=== PATIENT | female | born 1940 | race African-American/Black ===

== ENCOUNTER 2019-02-05 14:18 | Inpatient (IN) | payer OTHER ==
--- NOTE | 2019-02-05 14:57 | PDOC ---
History of Present Illness - General Chief Complaint: Blood Sugar Problem Stated Complaint: DM Time Seen by Provider: 02/05/19 14:57 - History of Present Illness Initial Comments: 02/05/19 15:41 Ms. 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 EMS was called and patient was noted to have BGM of 40. Patient was given D10 and improved rapidly to AOx3 status upon arrival to ER. Patient has no complaints at this time. The patient denies chest pain, shortness of breath, headache and dizziness. Denies fever, chills, nausea, vomit, diarrhea and constipation. Denies dysuria, frequency, urgency and hematuria. Past History - Past Medical History Allergies/Adverse Reactions: Allergies Allergy/AdvReac Type Severity Reaction Status Date / Time ciprofloxacin [From Cipro] Allergy Verified 02/05/19 14:30 Penicillins Allergy Verified 02/05/19 14:30 sulfamethoxazole Allergy Verified 02/05/19 14:30 [From Bactrim] trimethoprim [From Bactrim] Allergy Verified 02/05/19 14:30 Home Medications: Ambulatory Orders Amlodipine Besylate 10 mg PO DAILY 02/05/19 Ascorbate Calcium [Vitamin C] 500 mg PO DAILY 02/05/19 Cyanocobalamin (Vitamin B-12) [Vitamin B-12] 1,500 mcg PO DAILY 02/05/19 Insulin Glargine,Hum.rec.anlog [Lantus] 45 unit SQ AM 02/05/19 Insulin Lispro [Humalog] 3 unit SQ TID 02/05/19 Latanoprost 1 drop OP HS 02/05/19 Magnesium 400 mg PO TID 02/05/19 Metoprolol Tartrate 100 mg PO BID 02/05/19 Ranitidine HCl 150 mg PO BID 02/05/19 hydrALAZINE HCL [Apresoline -] 25 mg PO TID 02/05/19 COPD: No HTN: Yes Hypercholesterolemia: Yes - Suicide/Smoking/Psychosocial Hx Smoking History: Never smoked Hx Alcohol Use: No Drug/Substance Use Hx: No Review of Systems - Review of Systems Comments:: 02/05/19 15:50 GENERAL/CONSTITUTIONAL: No fever or chills. No weakness. HEAD, EYES, EARS, NOSE AND THROAT: No change in vision. No ear pain or discharge. No sore throat. CARDIOVASCULAR: No chest pain or shortness of breath RESPIRATORY: No cough, wheezing, or hemoptysis. GASTROINTESTINAL: No nausea, vomiting, diarrhea or constipation. GENITOURINARY: No dysuria, frequency, or change in urination. MUSCULOSKELETAL: No joint or muscle swelling or pain. No neck or back pain. SKIN: No rash NEUROLOGIC: +LOC as described. No headache, vertigo, or change in strength/ sensation. ENDOCRINE: No increased thirst. No abnormal weight change HEMATOLOGIC/LYMPHATIC: No anemia, easy bleeding, or history of blood clots. ALLERGIC/IMMUNOLOGIC: No hives or skin allergy. *Physical Exam - Vital Signs Last Vital Signs Temp Pulse Resp BP Pulse Ox 97.5 F L 71 16 123/63 96 02/05/19 14:20 02/05/19 14:20 02/05/19 14:20 02/05/19 14:20 02/05/19 14:20 - Physical Exam Comments: 02/05/19 15:51 GENERAL: Awake, alert, and fully oriented, in no acute distress HEAD: No signs of trauma, normocephalic, atraumatic EYES: PERRLA, EOMI, sclera anicteric, conjunctiva clear ENT: Auricles normal inspection, hearing grossly normal, nares patent, oropharynx clear without exudates. Moist mucosa NECK: Normal ROM, supple, no lymphadenopathy, JVD, or masses LUNGS: No distress, speaks full sentences, clear to auscultation bilaterally HEART: Regular rate and rhythm, normal S1 and S2, no murmurs, rubs or gallops, peripheral pulses normal and equal bilaterally. ABDOMEN: Soft, nontender, normoactive bowel sounds. No guarding, no rebound. No masses EXTREMITIES: Normal inspection, Normal range of motion, no edema. No clubbing or cyanosis. NEUROLOGICAL: Cranial nerves II through XII grossly intact. Normal speech, normal gait, no focal sensorimotor deficits SKIN: Warm, Dry, normal turgor, no rashes or lesions noted. ED Treatment Course - LABORATORY CBC & Chemistry Diagram: 02/05/19 15:36 02/05/19 15:36 Medical Decision Making - Medical Decision Making 02/05/19 16:35 Ms. Bran is a 78 yo female w/ pmh as described who presents for evaluation of non-responsiveness in the setting of hypoglycemia. Patient worked up with labs as below upon arrival. Patient given d50 push for hypoglycemia. Patient will likely be observed for repeat BGM in ER. 02/05/19 18:59 Patient repeat BGM improved as below. Patient noted to have UTI. Given repeat hypoglycemic episodes and UTI requiring ABX patient will be admitted for observation for further care. Patient given rocephin for UTI treatment; discussed allergy to pencillins with patient which was reported to be rash. Decision made to continue with rocephin given relatively mild reaction. Will monitor for allergic reaction. Laboratory Results - last 24 hr 02/05/19 02/05/19 02/05/19 15:36 15:36 16:24 WBC 8.5 RBC 4.72 Hgb 10.3 L Hct 31.4 L MCV 66.5 L MCH 21.8 L MCHC 32.8 RDW 18.6 H Plt Count 154 MPV 8.9 Absolute Neuts (auto) 7.1 Neutrophils % 83.8 H Lymphocytes % 10.4 Monocytes % 5.2 Eosinophils % 0.3 Basophils % 0.3 Nucleated RBC % 0 Sodium 142 Potassium 3.6 Chloride 106 Carbon Dioxide 27 Anion Gap 9 BUN 20 H Creatinine 1.3 Creat Clearance w eGFR 39.72 POC Glucometer 36 Random Glucose 39 L* Calcium 8.3 L Total Bilirubin 0.2 AST 20 ALT 15 Alkaline Phosphatase 84 Creatine Kinase 120 Troponin I < 0.02 Total Protein 7.4 Albumin 3.6 *DC/Admit/Observation/Transfer Diagnosis at time of Disposition: Hypoglycemia UTI (urinary tract infection) Qualifiers: Urinary tract infection type: site unspecified Hematuria presence: without hematuria Qualified Code(s): N39.0 - Urinary tract infection, site not specified - Discharge Dispostion Decision to Admit order: Yes - Referrals Referrals: Reuben Philip MD [Primary Care Provider] - - Patient Instructions - Post Discharge Activity
[2019-02-05 16:23] LABS: BASO % 0.3 % (0-2.0); EOS % 0.3 % (0-4.5); HEMATOCRIT 31.4 % (32.4-45.2); HEMOGLOBIN 10.3 GM/dL (10.7-15.3); LYMPH % 10.4 % (8-40); MCH 21.8 pg (25.7-33.7); MCHC 32.8 g/dl (32.0-36.0); MEAN CELL VOLUME 66.5 fl (80-96); MEAN PLT VOLUME 8.9 fl (7.5-11.1); MONO % 5.2 % (3.8-10.2); NEUT % 83.8 % (42.8-82.8); PLATELET COUNT 154 K/MM3 (134-434); RBC 4.72 M/mm3 (3.60-5.2); RDW 18.6 % (11.6-15.6); WHITE BLOOD COUNT 8.5 K/mm3 (4.0-10.0)
[2019-02-05] MEDS ORDERED: DEXTROSE 50%-WATER - 25 GM/50 ML VIAL IVPUSH ONE (16:25)
[2019-02-05] MEDS ORDERED: DEXTROSE 50%-WATER 25 GM/50 ML DISP.SYRIN ONE (16:26)
[2019-02-05 16:29] LABS: ALBUMIN 3.6 g/dl (3.4-5.0); ALK PHOS 84 U/L (45-117); ANION GAP 9 MMOL/L (8-16); BILIRUBIN,TOTAL 0.2 mg/dL (0.2-1); BLOOD UREA NITROGEN 20 mg/dL (7-18); CALCIUM 8.3 mg/dL (8.5-10.1); CHLORIDE 106 mmol/L (98-107); CO2 27 mmol/L (21-32); CREATININE 1.3 mg/dL (0.55-1.3); POTASSIUM 3.6 mmol/L (3.5-5.1); SGOT/AST 20 U/L (15-37); SGPT/ALT 15 U/L (13-61); SODIUM 142 mmol/L (136-145); TOT PROT 7.4 g/dl (6.4-8.2)
[2019-02-05 16:31] LABS: GLUCOSE,RANDOM 39 mg/dL (74-106)
--- NOTE | 2019-02-05 16:36 | PDOC ---
Documentation entered by Víctor Henley SCRIBE, acting as scribe for Bebe Ya MD. Bebe Ya MD: This documentation has been prepared by the wooibeKale Daniel, SCRIBE, under my direction and personally reviewed by me in its entirety. I confirm that the documentation accurately reflects all work, treatment, procedures, and medical decision making performed by me. Attending Attestation - Resident Resident Name: SebaselishabamDeclanBenjamin - ED Attending Attestation I have performed the following: I have examined & evaluated the patient, The case was reviewed & discussed with the resident, I agree w/resident's findings & plan, Exceptions are as noted - HPI HPI: 02/05/19 15:34 The patient is a 78 year old female with a past medical history of diabetes, seizures, and cancer with an adrenal mass brought in today by EMS from the [facility] for evaluation of low blood sugar. Patient was found passed out at the [facility] and EMS was called. Patients blood sugar was found to be 40 and she was given oral glucose. Patient denies headache, lightheadedness. Denies fever, chills. Denies chest pain, shortness of breath. Denies nausea, vomiting, diarrhea, abdominal pain. Allergies: ciprofloxacin, penicillins, sulfamethoxazole, trimethoprim PCP: Reuben Philip - Physicial Exam PE: GENERAL: Awake, alert, and fully oriented, in no acute distress HEAD: No signs of trauma EYES: PERRLA, EOMI, sclera anicteric, conjunctiva clear ENT: Auricles normal inspection, hearing grossly normal, nares patent, oropharynx clear without exudates. Moist mucosa NECK: Normal ROM, supple, no lymphadenopathy, JVD, or masses LUNGS: Breath sounds equal, clear to auscultation bilaterally. No wheezes, and no crackles HEART: Regular rate and rhythm, normal S1 and S2, no murmurs, rubs or gallops ABDOMEN: Soft, nontender, normoactive bowel sounds. No guarding, no rebound. No masses EXTREMITIES: Normal range of motion, no edema. No clubbing or cyanosis. No cords, erythema, or tenderness NEUROLOGICAL: Cranial nerves II through XII grossly intact. Normal speech, normal gait. Motor and sensation intact SKIN: Warm, Dry, normal turgor, no rashes or lesions noted. - Medical Decision Making Pt presents with multiple episodes of hypoglycemia- one at home, and now one in the ED. Etiology is unclear- she is not on any sulfonylureas, her insulin is administered at the center where she lives, did not skip meals, and she has not recently been ill. Will give a meal in ED, will cont to monitor to see if she continues to drop. If so, will place on obs.
[2019-02-05 17:39] LABS: EPI CELLS 0.2 /HPF (0-5/HPF); URINE APPEARANCE CLOUDY; URINE BACTERIA >9000 /hpf (NEGATIVE); URINE BILIRUBIN NEGATIVE (NEGATIVE); URINE CASTS 6 /lpf (0-8); URINE COLOR YELLOW; URINE GLUCOSE (UA) NEGATIVE (NEGATIVE); URINE KETONE NEGATIVE (NEGATIVE); URINE LEUK ESTERASE 2+ (NEGATIVE); URINE NITRITE NEGATIVE (NEGATIVE); URINE PROTEIN 1+ (NEGATIVE); URINE RBC 3 /hpf (0-4); URINE UROBILINOGEN 0.2 mg/dL (0.2-1.0); URINE WBC 130 /hpf (0-5)
[2019-02-05] MEDS ORDERED: CEFTRIAXONE 1,000 MG in DEXTROSE 5%-WATER - 50 ML IVPB ONE (18:59)
[2019-02-05] MEDS ORDERED: CEFTRIAXONE 1 GM/50 ML BAG ONE (19:04)
--- NOTE | 2019-02-05 20:26 | HP ---
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 who presents for evaluation of non-responsive episode earlier today. EMS was called and patient was noted to have BGM of 40. Patient was given D10 and improved rapidly to AOx3 status upon arrival to ER. Patient has no complaints at this time. - Past Medical History Cardiovascular: Yes: HTN, Hyperlipdemia Heme/Onc: Yes: Other (vaginal ca) Endocrine: Yes: Diabetes Mellitus - Smoking History Smoking history: Never smoked - Alcohol/Substance Use Hx Alcohol Use: No Home Medications - Allergies Allergies/Adverse Reactions: Allergies Allergy/AdvReac Type Severity Reaction Status Date / Time ciprofloxacin [From Cipro] Allergy Verified 02/05/19 14:30 Penicillins Allergy Verified 02/05/19 14:30 sulfamethoxazole Allergy Verified 02/05/19 14:30 [From Bactrim] trimethoprim [From Bactrim] Allergy Verified 02/05/19 14:30 [place] AdvReac Uncoded 02/06/19 12:46 - Home Medications Home Medications: Ambulatory Orders Amlodipine Besylate 10 mg PO DAILY 02/05/19 Ascorbate Calcium [Vitamin C] 500 mg PO DAILY 02/05/19 Cyanocobalamin (Vitamin B-12) [Vitamin B-12] 1,500 mcg PO DAILY 02/05/19 Insulin Glargine,Hum.rec.anlog [Lantus] 45 unit SQ AM 02/05/19 Insulin Lispro [Humalog] 3 unit SQ TID 02/05/19 Latanoprost 1 drop OP HS 02/05/19 Magnesium 400 mg PO TID 02/05/19 Metoprolol Tartrate 100 mg PO BID 02/05/19 Ranitidine HCl 150 mg PO BID 02/05/19 hydrALAZINE HCL [Apresoline -] 25 mg PO TID 02/05/19 Physical Examination Vital Signs: Vital Signs Temperature 97.5 F L 02/05/19 18:37 Pulse Rate 73 02/05/19 18:37 Respiratory Rate 17 02/05/19 18:37 Blood Pressure 154/75 02/05/19 18:37 O2 Sat by Pulse Oximetry (%) 100 02/05/19 18:37 Constitutional: Yes: No Distress HENT: Yes: Atraumatic Neck: Yes: Supple Cardiovascular: Yes: Regular Rate and Rhythm Respiratory: Yes: CTA Bilaterally Gastrointestinal: Yes: Normal Bowel Sounds Extremities: Yes: WNL Edema: No Peripheral Pulses WNL: Yes Neurological: Yes: Alert, Oriented Labs: CBC, BMP 02/05/19 15:36 02/05/19 15:36 Imaging - Results X-ray: Report Reviewed Problem List - Problems (1) Hypoglycemia Assessment/Plan: monitor Code(s): E16.2 - HYPOGLYCEMIA, UNSPECIFIED (2) UTI (urinary tract infection) Assessment/Plan: iv abx cxs sent Code(s): N39.0 - URINARY TRACT INFECTION, SITE NOT SPECIFIED Qualifiers: Urinary tract infection type: site unspecified Hematuria presence: without hematuria Qualified Code(s): N39.0 - Urinary tract infection, site not specified Assessment/Plan Laboratory Tests 02/05/19 02/05/19 02/05/19 15:36 15:36 16:24 WBC 8.5 RBC 4.72 Hgb 10.3 L Hct 31.4 L MCV 66.5 L MCH 21.8 L MCHC 32.8 RDW 18.6 H Plt Count 154 MPV 8.9 Absolute Neuts (auto) 7.1 Neutrophils % 83.8 H Lymphocytes % 10.4 Monocytes % 5.2 Eosinophils % 0.3 Basophils % 0.3 Nucleated RBC % 0 Sodium 142 Potassium 3.6 Chloride 106 Carbon Dioxide 27 Anion Gap 9 BUN 20 H Creatinine 1.3 Creat Clearance w eGFR 39.72 POC Glucometer 36 Random Glucose 39 L* Calcium 8.3 L Total Bilirubin 0.2 AST 20 ALT 15 Alkaline Phosphatase 84 Creatine Kinase 120 Troponin I < 0.02 Total Protein 7.4 Albumin 3.6 Urine Color Urine Appearance Urine pH Ur Specific Dumas Urine Protein Urine Glucose (UA) Urine Ketones Urine Blood Urine Nitrite Urine Bilirubin Urine Urobilinogen Ur Leukocyte Esterase Urine WBC (Auto) Urine RBC (Auto) Urine Casts (Auto) U Epithel Cells (Auto) Urine Bacteria (Auto) 02/05/19 02/05/19 17:15 18:21 WBC RBC Hgb Hct MCV MCH MCHC RDW Plt Count MPV Absolute Neuts (auto) Neutrophils % Lymphocytes % Monocytes % Eosinophils % Basophils % Nucleated RBC % Sodium Potassium Chloride Carbon Dioxide Anion Gap BUN Creatinine Creat Clearance w eGFR POC Glucometer 195 Random Glucose Calcium Total Bilirubin AST ALT Alkaline Phosphatase Creatine Kinase Troponin I Total Protein Albumin Urine Color Yellow Urine Appearance Cloudy Urine pH 5.0 Ur Specific Dum[place] 1.016 Urine Protein 1+ H Urine Glucose (UA) Negative Urine Ketones Negative Urine Blood Negative Urine Nitrite Negative Urine Bilirubin Negative Urine Urobilinogen 0.2 Ur Leukocyte Esterase 2+ H Urine WBC (Auto) 130 Urine RBC (Auto) 3 Urine Casts (Auto) 6 U Epithel Cells (Auto) 0.2 Urine Bacteria (Auto) >9000 Active Medications Generic Name Dose Route Start Last Admin Trade Name Freq PRN Reason Stop Dose Admin Amlodipine Besylate 10 mg 02/06/19 10:00 02/07/19 11:18 Norvasc - PO 10 mg DAILY CONNIE Administration Hydralazine HCl 25 mg 02/05/19 22:00 02/07/19 13:09 Apresoline - PO 25 mg TID CONNIE Administration Aztreonam 1 gm/ Dextrose 50 mls @ 100 mls/hr 02/07/19 11:30 02/07/19 17:26 IVPB 100 mls/hr Q8H-IV CONNIE Administration Protocol Insulin Aspart 1 vial 02/06/19 22:00 02/06/19 21:11 Novolog Vial Sliding Scale - SQ Not Given HS [facility] Protocol Insulin Aspart 1 vial 02/07/19 07:00 02/07/19 17:36 Novolog Vial Sliding Scale - SQ 2 units TIDAC CONNIE Administration Protocol Metoprolol Tartrate 100 mg 02/05/19 22:00 02/07/19 11:18 Lopressor - PO 100 mg BID CONNIE Administration
[2019-02-05] MEDS ORDERED: INSULIN (NOVOLOG) ASPART 100 UNITS/ML 10ML VIAL ONE (21:02)
[2019-02-05] MEDS: hydrALAZINE HCL 25 MG TABLET (FP) PO SCH (21:12)
[2019-02-05] MEDS: INSULIN SLIDING SCALE (NOVOLOG) 1 VIAL SQ SCH (21:12)
[2019-02-05] MEDS: METOPROLOL TARTRATE 50 MG TABLET (FP) PO SCH (21:12)
[2019-02-06] MEDS: hydrALAZINE HCL 25 MG TABLET (FP) PO SCH ×3 (05:30→21:10)
[2019-02-06] MEDS: INSULIN SLIDING SCALE (NOVOLOG) 1 VIAL SQ SCH ×4 (06:44→21:11)
[2019-02-06 07:34] LABS: BASO % 0.5 % (0-2.0); EOS % 1.6 % (0-4.5); HEMOGLOBIN 9.7 GM/dL (10.7-15.3); LYMPH % 13.5 % (8-40); MCH 22.2 pg (25.7-33.7); MCHC 34.5 g/dl (32.0-36.0); MEAN CELL VOLUME 64.3 fl (80-96); MEAN PLT VOLUME 8.5 fl (7.5-11.1); MONO % 5.7 % (3.8-10.2); NEUT % 78.7 % (42.8-82.8); PLATELET COUNT 165 K/MM3 (134-434); RBC 4.35 M/mm3 (3.60-5.2); RDW 19.2 % (11.6-15.6); WHITE BLOOD COUNT 8.3 K/mm3 (4.0-10.0)
[2019-02-06 07:55] LABS: ALBUMIN 3.4 g/dl (3.4-5.0); ALK PHOS 80 U/L (45-117); ANION GAP 9 MMOL/L (8-16); BILIRUBIN,TOTAL 0.5 mg/dL (0.2-1); BLOOD UREA NITROGEN 19 mg/dL (7-18); CALCIUM 8.4 mg/dL (8.5-10.1); CHLORIDE 105 mmol/L (98-107); CO2 25 mmol/L (21-32); CREATININE 1.3 mg/dL (0.55-1.3); GLUCOSE,RANDOM 142 mg/dL (74-106); POTASSIUM 4.1 mmol/L (3.5-5.1); SGOT/AST 15 U/L (15-37); SGPT/ALT 13 U/L (13-61); SODIUM 139 mmol/L (136-145)
--- NOTE | 2019-02-06 09:14 | CONSULT ---
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 Pt says she had her usual breakfast at around 9 AM , went to see her MD at around 11 AM and returned to her room. Around 1 PM which is her usual lunch time she woke up in her room with the nurses around her. Doesn't remember when she lost consciousness or for how long. EMS was called and patient was noted to have BGM of 40. Patient was given D10 and improved rapidly to AOx3 status upon arrival to ER. Patient has no complaints at this time. Pt gives h/o of LOC from hypoglycemia in 1995. - History Source History Provided By: Patient, Medical Record - Past Medical History Cardio/Vascular: Yes: HTN, Hyperlipdemia ...: No Endocrine: Yes: Diabetes Mellitus - Alcohol/Substance Use Hx Alcohol Use: No - Smoking History Smoking history: Never smoked Have you smoked in the past 12 months: No Home Medications - Allergies Allergies/Adverse Reactions: Allergies Allergy/AdvReac Type Severity Reaction Status Date / Time ciprofloxacin [From Cipro] Allergy Verified 02/05/19 14:30 Penicillins Allergy Verified 02/05/19 14:30 sulfamethoxazole Allergy Verified 02/05/19 14:30 [From Bactrim] trimethoprim [From Bactrim] Allergy Verified 02/05/19 14:30 [place]ia AdvReac Uncoded 02/06/19 12:46 - Home Medications Home Medications: Ambulatory Orders Amlodipine Besylate 10 mg PO DAILY 02/05/19 Ascorbate Calcium [Vitamin C] 500 mg PO DAILY 02/05/19 Cyanocobalamin (Vitamin B-12) [Vitamin B-12] 1,500 mcg PO DAILY 02/05/19 Insulin Glargine,Hum.rec.anlog [Lantus] 45 unit SQ AM 02/05/19 Insulin Lispro [Humalog] 3 unit SQ TID 02/05/19 Latanoprost 1 drop OP HS 02/05/19 Magnesium 400 mg PO TID 02/05/19 Metoprolol Tartrate 100 mg PO BID 02/05/19 Ranitidine HCl 150 mg PO BID 02/05/19 hydrALAZINE HCL [Apresoline -] 25 mg PO TID 02/05/19 Family Disease History - Family Disease History Family Disease History: Diabetes: Mother Review of Systems - Review of Systems Constitutional: reports: No Symptoms Eyes: reports: No Symptoms HENT: reports: No Symptoms Neck: reports: No Symptoms Cardiovascular: reports: No Symptoms Respiratory: reports: No Symptoms Gastrointestinal: reports: No Symptoms Genitourinary: reports: No Symptoms Musculoskeletal: reports: No Symptoms Integumentary: reports: No Symptoms Neurological: reports: No Symptoms Endocrine: reports: No Symptoms Physical Exam Vital Signs: Vital Signs Temperature 98.2 F 02/06/19 06:24 Pulse Rate 70 02/06/19 06:24 Respiratory Rate 17 02/06/19 06:24 Blood Pressure 136/53 L 02/06/19 06:24 O2 Sat by Pulse Oximetry (%) 100 02/05/19 23:08 Constitutional: Yes: No Distress, Calm Eyes: Yes: Conjunctiva Clear, EOM Intact HENT: Yes: Atraumatic, Normocephalic Neck: Yes: Supple, Trachea Midline Cardiovascular: Yes: Regular Rate and Rhythm Respiratory: Yes: Regular, CTA Bilaterally Gastrointestinal: Yes: Normal Bowel Sounds, Soft Musculoskeletal: Yes: WNL Extremities: Yes: WNL Edema: No Labs: CBC, BMP 02/06/19 07:15 02/06/19 07:15 Assessment/Plan AP; Hypoglycemia T2DM HTN Diet exercise discussed Diabetes education done Monitor BGM Novolog SS coverage Hold long acting Insulin for now Will try to get BGM log from [facility] Nutrition consult
[2019-02-06] MEDS: METOPROLOL TARTRATE 50 MG TABLET (FP) PO SCH ×2 (10:35→21:10)
[2019-02-06] MEDS: amLODIPine BESYLATE 10 MG TABLET (FP) PO SCH (10:35)
--- NOTE | 2019-02-06 11:22 | CON.ID ---
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 EMS was called and patient was noted to have BGM of 40. Patient was given D10 and improved rapidly to AOx3 status upon arrival to ER. Patient has no complaints at this time. also thee i worry if the patient das had uti - History Source History Provided By: Patient Limitations to Obtaining History: No Limitations - Past Medical History Cardio/Vascular: Yes: HTN, Hyperlipdemia ...: No Endocrine: Yes: Diabetes Mellitus - Alcohol/Substance Use Hx Alcohol Use: No - Smoking History Smoking history: Never smoked Have you smoked in the past 12 months: No Home Medications - Allergies Allergies/Adverse Reactions: Allergies Allergy/AdvReac Type Severity Reaction Status Date / Time ciprofloxacin [From Cipro] Allergy Verified 02/05/19 14:30 Penicillins Allergy Verified 02/05/19 14:30 sulfamethoxazole Allergy Verified 02/05/19 14:30 [From Bactrim] trimethoprim [From Bactrim] Allergy Verified 02/05/19 14:30 [place] AdvReac Uncoded 02/06/19 12:46 - Home Medications Home Medications: Ambulatory Orders Ascorbate Calcium [Vitamin C] 500 mg PO DAILY 02/05/19 Cyanocobalamin (Vitamin B-12) [Vitamin B-12] 1,500 mcg PO DAILY 02/05/19 Insulin Glargine,Hum.rec.anlog [Lantus] 45 unit SQ AM 02/05/19 Insulin Lispro [Humalog] 3 unit SQ TID 02/05/19 RX: Amlodipine Besylate 10 mg PO DAILY 02/05/19 RX: Latanoprost 1 drop OP HS 02/05/19 RX: Magnesium 400 mg PO TID 02/05/19 RX: Metoprolol Tartrate 100 mg PO BID 02/05/19 RX: Ranitidine HCl 150 mg PO BID 02/05/19 hydrALAZINE HCL [Apresoline -] 25 mg PO TID 02/05/19 Family Disease History - Family Disease History Family Disease History: Diabetes: Father, Mother Review of Systems - Review of Systems Constitutional: reports: Other Eyes: reports: No Symptoms HENT: reports: No Symptoms Neck: reports: No Symptoms Cardiovascular: reports: No Symptoms Respiratory: reports: No Symptoms Gastrointestinal: reports: No Symptoms Genitourinary: reports: No Symptoms Musculoskeletal: reports: No Symptoms Integumentary: reports: No Symptoms Neurological: reports: Change in LOC Endocrine: reports: No Symptoms Hematology/Lymphatic: reports: No Symptoms Psychiatric: reports: Hallucinations Physical Exam Vital Signs: Vital Signs Temperature 98.2 F 02/06/19 06:24 Pulse Rate 70 02/06/19 06:24 Respiratory Rate 17 02/06/19 06:24 Blood Pressure 136/53 L 02/06/19 06:24 O2 Sat by Pulse Oximetry (%) 100 02/05/19 23:08 Constitutional: Yes: No Distress, Calm, Thin Eyes: Yes: Conjunctiva Clear Cardiovascular: Yes: Regular Rate and Rhythm Respiratory: Yes: Regular, CTA Bilaterally Gastrointestinal: Yes: Normal Bowel Sounds, Soft Musculoskeletal: Yes: WNL Extremities: Yes: WNL Neurological: Yes: Alert, Oriented Psychiatric: Yes: Alert, Oriented Labs: CBC, BMP 02/06/19 07:15 02/06/19 07:15 Imaging - Results Chest X-ray: Report Reviewed, Image Reviewed Assessment/Plan Problem List - Problems (1) Hypoglycemia Code(s): E16.2 - HYPOGLYCEMIA, UNSPECIFIED (2) UTI (urinary tract infection) Code(s): N39.0 - URINARY TRACT INFECTION, SITE NOT SPECIFIED Qualifiers: Urinary tract infection type: site unspecified Hematuria presence: without hematuria Qualified Code(s): N39.0 - Urinary tract infection, site not specified ams weakness plan will hold off on starting any abx will await for the urine result and then decide further rest as per the team
--- NOTE | 2019-02-06 11:39 | EKG ---
Test Reason : Blood Pressure : / mmHG Vent. Rate : 062 BPM Atrial Rate : 062 BPM P-R Int : 130 ms QRS Dur : 070 ms QT Int : 450 ms P-R-T Axes : 029 -11 016 degrees QTc Int : 456 ms POOR DATA QUALITY, INTERPRETATION MAY BE ADVERSELY AFFECTED NORMAL SINUS RHYTHM POSSIBLE LEFT ATRIAL ENLARGEMENT LEFT VENTRICULAR HYPERTROPHY ABNORMAL ECG NO PREVIOUS ECGS AVAILABLE Confirmed by Taurus Worley MD ([id number]) on 02/06/2019 11:38:59 AM Referred By: Confirmed By:Taurus Worley MD
--- NOTE | 2019-02-06 16:54 | PN ---
Progress Note, Physician - Current Medication List Current Medications: Active Medications Amlodipine Besylate (Norvasc -) 10 mg PO DAILY ON LICENSE OF [facility] Last Admin: 02/06/19 10:35 Dose: 10 mg Hydralazine HCl (Apresoline -) 25 mg PO TID ON LICENSE OF [facility] Last Admin: 02/06/19 14:55 Dose: 25 mg Insulin Aspart (Novolog Vial Sliding Scale -) 1 vial SQ ACHS ON LICENSE OF [facility]; Protocol Last Admin: 02/06/19 12:48 Dose: 4 units Metoprolol Tartrate (Lopressor -) 100 mg PO BID ON LICENSE OF [facility] Last Admin: 02/06/19 10:35 Dose: 100 mg - Objective Vital Signs: Vital Signs Temperature 98.3 F 02/06/19 14:42 Pulse Rate 68 02/06/19 14:42 Respiratory Rate 18 02/06/19 14:42 Blood Pressure 153/63 02/06/19 14:42 O2 Sat by Pulse Oximetry (%) 100 02/05/19 23:08 Constitutional: Yes: No Distress HENT: Yes: Atraumatic Neck: Yes: Supple Cardiovascular: Yes: Regular Rate and Rhythm Respiratory: Yes: CTA Bilaterally Gastrointestinal: Yes: Normal Bowel Sounds Extremities: Yes: WNL Neurological: Yes: Alert, Oriented Labs: CBC, BMP 02/06/19 07:15 02/06/19 07:15 Problem List - Problems (1) Hypoglycemia Assessment/Plan: monitor Code(s): E16.2 - HYPOGLYCEMIA, UNSPECIFIED (2) UTI (urinary tract infection) Assessment/Plan: iv abx cxs sent Code(s): N39.0 - URINARY TRACT INFECTION, SITE NOT SPECIFIED Qualifiers: Urinary tract infection type: site unspecified Hematuria presence: without hematuria Qualified Code(s): N39.0 - Urinary tract infection, site not specified
[2019-02-07] MEDS: hydrALAZINE HCL 25 MG TABLET (FP) PO SCH ×3 (05:39→21:12)
[2019-02-07] MEDS: INSULIN SLIDING SCALE (NOVOLOG) 1 VIAL SQ SCH ×5 (06:14→21:12)
[2019-02-07] MEDS ORDERED: INSULIN SLIDING SCALE (NOVOLOG) 1 VIAL SQ SCH (07:00)
--- NOTE | 2019-02-07 08:55 | PN ---
Progress Note (short form) - Note Progress Note: Denies any complaints FS stable of long actin insulin Vital Signs Period Temp Pulse Resp BP Sys/Lopez Pulse Ox Last 24 Hr 98.3 F-99.2 F 56-75 17-18 126-156/57-84 97-100 PE: Awake , alert Neck: Supple, No JVD HEENT: PERRL Lungs: CTA CVS: S1S2 Abd: Benign EXt: No edema Neuro: No focal deficit CMP Sodium 139 mmol/L (136-145) 02/06/19 07:15 Potassium 4.1 mmol/L (3.5-5.1) 02/06/19 07:15 Chloride 105 mmol/L (98-107) 02/06/19 07:15 Carbon Dioxide 25 mmol/L (21-32) 02/06/19 07:15 Anion Gap 9 MMOL/L (8-16) 02/06/19 07:15 BUN 19 mg/dL (7-18) H 02/06/19 07:15 Creatinine 1.3 mg/dL (0.55-1.3) 02/06/19 07:15 Creat Clearance w eGFR 39.72 (>60) 02/06/19 07:15 POC Glucometer 125 UNITS (80-120) 02/07/19 05:53 Random Glucose 142 mg/dL (74-106) H 02/06/19 07:15 Calcium 8.4 mg/dL (8.5-10.1) L 02/06/19 07:15 Total Bilirubin 0.5 mg/dL (0.2-1) 02/06/19 07:15 AST 15 U/L (15-37) 02/06/19 07:15 ALT 13 U/L (13-61) 02/06/19 07:15 Alkaline Phosphatase 80 U/L (45-117) 02/06/19 07:15 Creatine Kinase 114 U/L (26-192) 02/05/19 21:30 Troponin I < 0.02 ng/ml (0.00-0.05) 02/05/19 21:30 Total Protein 7.0 g/dl (6.4-8.2) 02/06/19 07:15 Albumin 3.4 g/dl (3.4-5.0) 02/06/19 07:15 Current Medications Generic Name Dose Route Start Last Admin Trade Name Freq PRN Reason Stop Dose Admin Amlodipine Besylate 10 mg 02/06/19 10:00 02/06/19 10:35 Norvasc - PO 10 mg DAILY [facility] Administration Hydralazine HCl 25 mg 02/05/19 22:00 02/07/19 05:39 Apresoline - PO 25 mg TID [facility] Administration Insulin Aspart 1 vial 02/06/19 22:00 02/06/19 21:11 Novolog Vial Sliding Scale - SQ Not Given HS [facility]IE Protocol Insulin Aspart 1 vial 02/07/19 07:00 02/07/19 06:14 Novolog Vial Sliding Scale - SQ Not Given TIDAC [facility] Protocol Metoprolol Tartrate 100 mg 02/05/19 22:00 02/06/19 21:10 Lopressor - PO 100 mg BID [facility] Administration AP; Hypoglycemia T2DM HTN Diet exercise discussed Diabetes education done Monitor BGM Novolog SS coverage Hold long acting Insulin for now Will try to get BGM log from [facility] Nutrition consult HbA1c
[2019-02-07] MEDS: amLODIPine BESYLATE 10 MG TABLET (FP) PO SCH (11:18)
[2019-02-07] MEDS: METOPROLOL TARTRATE 50 MG TABLET (FP) PO SCH ×2 (11:18→21:10)
--- NOTE | 2019-02-07 11:21 | PN ---
Progress Note, Physician History of Present Illness: comfortable no complaints urine results noted - Current Medication List Current Medications: Active Medications Amlodipine Besylate (Norvasc -) 10 mg PO DAILY [facility] Last Admin: 02/07/19 11:18 Dose: 10 mg Hydralazine HCl (Apresoline -) 25 mg PO TID [facility] Last Admin: 02/07/19 05:39 Dose: 25 mg Insulin Aspart (Novolog Vial Sliding Scale -) 1 vial SQ HS [facility]; Protocol Last Admin: 02/06/19 21:11 Dose: Not Given Insulin Aspart (Novolog Vial Sliding Scale -) 1 vial SQ TIDAC [facility]; Protocol Last Admin: 02/07/19 06:14 Dose: Not Given Metoprolol Tartrate (Lopressor -) 100 mg PO BID [facility] Last Admin: 02/07/19 11:18 Dose: 100 mg - Objective Vital Signs: Vital Signs Temperature 98.4 F 02/07/19 06:46 Pulse Rate 75 02/07/19 06:46 Respiratory Rate 18 02/07/19 06:46 Blood Pressure 130/84 02/07/19 06:46 O2 Sat by Pulse Oximetry (%) 97 02/06/19 20:37 Constitutional: Yes: No Distress, Calm Cardiovascular: Yes: Regular Rate and Rhythm Respiratory: Yes: Regular, CTA Bilaterally Gastrointestinal: Yes: Normal Bowel Sounds, Soft Musculoskeletal: Yes: WNL Extremities: Yes: Other Neurological: Yes: Alert, Oriented Psychiatric: Yes: Alert, Oriented Labs: CBC, BMP 02/06/19 07:15 02/06/19 07:15 Assessment/Plan Problem List - Problems (1) Hypoglycemia Code(s): E16.2 - HYPOGLYCEMIA, UNSPECIFIED (2) UTI (urinary tract infection) Code(s): N39.0 - URINARY TRACT INFECTION, SITE NOT SPECIFIED Qualifiers: Urinary tract infection type: site unspecified Hematuria presence: without hematuria Qualified Code(s): N39.0 - Urinary tract infection, site not specified ams weakness plan will start on aztreonam very few choices since patient allergic to lot of drugs once we have sensitivities will decide on further plan rest as per the team
[2019-02-07] MEDS ORDERED: AZTREONAM 1 GM VIAL (RESTRICTED TO ID) ONE ×2 (13:03→17:10)
[2019-02-07] MEDS ORDERED: DEXTROSE 5%-WATER - 50 ML IVPB ONE ×2 (13:04→17:10)
[2019-02-07] MEDS: AZTREONAM 1 GM in DEXTROSE 5%-WATER - 50 ML IVPB SCH ×2 (13:09→17:26)
--- NOTE | 2019-02-07 17:58 | PN ---
Progress Note, Physician History of Present Illness: doing well - Current Medication List Current Medications: Active Medications Amlodipine Besylate (Norvasc -) 10 mg PO DAILY [facility] Last Admin: 02/07/19 11:18 Dose: 10 mg Hydralazine HCl (Apresoline -) 25 mg PO TID [facility] Last Admin: 02/07/19 13:09 Dose: 25 mg Aztreonam 1 gm/ Dextrose 50 mls @ 100 mls/hr IVPB Q8H-IV [facility]; Protocol Last Admin: 02/07/19 17:26 Dose: 100 mls/hr Insulin Aspart (Novolog Vial Sliding Scale -) 1 vial SQ HS [facility]; Protocol Last Admin: 02/06/19 21:11 Dose: Not Given Insulin Aspart (Novolog Vial Sliding Scale -) 1 vial SQ TIDAC [facility]; Protocol Last Admin: 02/07/19 17:36 Dose: 2 units Metoprolol Tartrate (Lopressor -) 100 mg PO BID [facility] Last Admin: 02/07/19 11:18 Dose: 100 mg - Objective Vital Signs: Vital Signs Temperature 98.8 F 02/07/19 14:22 Pulse Rate 76 02/07/19 14:22 Respiratory Rate 18 02/07/19 14:22 Blood Pressure 139/63 02/07/19 14:22 O2 Sat by Pulse Oximetry (%) 97 02/07/19 09:00 Constitutional: Yes: No Distress HENT: Yes: Atraumatic Neck: Yes: Supple Cardiovascular: Yes: Regular Rate and Rhythm Respiratory: Yes: CTA Bilaterally Gastrointestinal: Yes: Normal Bowel Sounds Extremities: Yes: WNL Edema: No Peripheral Pulses WNL: Yes Neurological: Yes: Alert, Oriented Labs: CBC, BMP 02/06/19 07:15 02/06/19 07:15 Problem List - Problems (1) Hypoglycemia Assessment/Plan: monitor Code(s): E16.2 - HYPOGLYCEMIA, UNSPECIFIED (2) UTI (urinary tract infection) Assessment/Plan: iv abx cxs sent Code(s): N39.0 - URINARY TRACT INFECTION, SITE NOT SPECIFIED Qualifiers: Urinary tract infection type: site unspecified Hematuria presence: without hematuria Qualified Code(s): N39.0 - Urinary tract infection, site not specified
[2019-02-08] MEDS ORDERED: AZTREONAM 1 GM VIAL (RESTRICTED TO ID) ONE ×3 (02:23→17:34)
[2019-02-08] MEDS ORDERED: DEXTROSE 5%-WATER - 50 ML IVPB ONE ×3 (02:23→17:34)
[2019-02-08] MEDS: AZTREONAM 1 GM in DEXTROSE 5%-WATER - 50 ML IVPB SCH ×3 (02:41→17:50)
[2019-02-08] MEDS: hydrALAZINE HCL 25 MG TABLET (FP) PO SCH ×3 (05:23→21:52)
[2019-02-08] MEDS: INSULIN SLIDING SCALE (NOVOLOG) 1 VIAL SQ SCH ×4 (06:22→21:52)
[2019-02-08 07:44] LABS: BILIRUBIN,TOTAL 0.4 mg/dL (0.2-1); CALCIUM 8.2 mg/dL (8.5-10.1); CREATININE 1.2 mg/dL (0.55-1.3); POTASSIUM 3.8 mmol/L (3.5-5.1); TOT PROT 6.5 g/dl (6.4-8.2)
--- NOTE | 2019-02-08 09:12 | PN ---
Progress Note, Physician History of Present Illness: patient stable no new issues feels much better - Current Medication List Current Medications: Active Medications Amlodipine Besylate (Norvasc -) [address] [facility] Last Admin: 02/07/19 11:18 Dose: 10 mg Hydralazine HCl (Apresoline -) [address] [facility] Last Admin: 02/08/19 05:23 Dose: 25 mg Aztreonam 1 gm/ Dextrose 50 mls @ 100 mls/hr IVPB Q8H-IV [facility]; Protocol Last Admin: 02/08/19 02:41 Dose: 100 mls/hr Insulin Aspart (Novolog Vial Sliding Scale -) [address] [facility]; Protocol Last Admin: 02/07/19 21:12 Dose: Not Given Insulin Aspart (Novolog Vial Sliding Scale -) [address] [facility]; Protocol Last Admin: 02/08/19 06:22 Dose: 2 units Metoprolol Tartrate (Lopressor -) [address] [facility] Last Admin: 02/07/19 21:10 Dose: 100 mg - Objective Vital Signs: Vital Signs Temperature 98.7 F 02/08/19 06:15 Pulse Rate 73 02/08/19 06:15 Respiratory Rate 18 02/08/19 06:15 Blood Pressure 153/75 02/08/19 06:15 O2 Sat by Pulse Oximetry (%) 94 L 02/07/19 21:00 Constitutional: Yes: No Distress, Calm Cardiovascular: Yes: Regular Rate and Rhythm Respiratory: Yes: Regular, CTA Bilaterally Gastrointestinal: Yes: Normal Bowel Sounds, Soft Musculoskeletal: Yes: WNL Extremities: Yes: WNL Neurological: Yes: Alert, Oriented Psychiatric: Yes: Alert, Oriented Labs: CBC, BMP 02/06/19 07:15 02/08/19 06:00 Assessment/Plan Problem List - Problems (1) Hypoglycemia Code(s): E16.2 - HYPOGLYCEMIA, UNSPECIFIED (2) UTI (urinary tract infection) Code(s): N39.0 - URINARY TRACT INFECTION, SITE NOT SPECIFIED Qualifiers: Urinary tract infection type: site unspecified Hematuria presence: without hematuria Qualified Code(s): N39.0 - Urinary tract infection, site not specified ams weakness plan continue abx rest as per the team
[2019-02-08] MEDS: amLODIPine BESYLATE 10 MG TABLET (FP) PO SCH (10:34)
[2019-02-08] MEDS: METOPROLOL TARTRATE 50 MG TABLET (FP) PO SCH ×2 (10:34→21:52)
--- NOTE | 2019-02-08 16:13 | PN ---
Progress Note (short form) - Note Progress Note: Denies any complaints FS stable off long acting insulin Vital Signs Period Temp Pulse Resp BP Sys/Lopez Pulse Ox Last 24 Hr 97.4 F-98.7 F 61-73 18-18 140-153/64-75 94-97 PE: Awake , alert Neck: Supple, No JVD HEENT: PERRL Lungs: CTA CVS: S1S2 Abd: Benign EXt: No edema Neuro: No focal deficit CMP Sodium 137 mmol/L (136-145) 02/08/19 06:00 Potassium 3.8 mmol/L (3.5-5.1) 02/08/19 06:00 Chloride 103 mmol/L (98-107) 02/08/19 06:00 Carbon Dioxide 28 mmol/L (21-32) 02/08/19 06:00 Anion Gap 5 MMOL/L (8-16) L 02/08/19 06:00 BUN 17 mg/dL (7-18) 02/08/19 06:00 Creatinine 1.2 mg/dL (0.55-1.3) 02/08/19 06:00 Creat Clearance w eGFR 39.72 (>60) 02/06/19 07:15 Est GFR (CKD-EPI)AfAm 50.48 02/08/19 06:00 Est GFR (CKD-EPI)NonAf 43.56 02/08/19 06:00 POC Glucometer 162 UNITS (80-120) 02/08/19 05:22 Random Glucose 136 mg/dL (74-106) H 02/08/19 06:00 Hemoglobin A1c % 5.2 % (4.2-6.3) 02/08/19 06:00 Calcium 8.2 mg/dL (8.5-10.1) L 02/08/19 06:00 Total Bilirubin 0.4 mg/dL (0.2-1) 02/08/19 06:00 AST 20 U/L (15-37) 02/08/19 06:00 ALT 15 U/L (13-61) 02/08/19 06:00 Alkaline Phosphatase 70 U/L (45-117) 02/08/19 06:00 Creatine Kinase 114 U/L (26-192) 02/05/19 21:30 Troponin I < 0.02 ng/ml (0.00-0.05) 02/05/19 21:30 Total Protein 6.5 g/dl (6.4-8.2) 02/08/19 06:00 Albumin 3.0 g/dl (3.4-5.0) L 02/08/19 06:00 Current Medications Generic Name Dose Route Start Last Admin Trade Name Jeffy PRN Reason Stop Dose Admin Amlodipine Besylate 10 mg 02/06/19 10:00 02/08/19 10:34 Norvasc - PO 10 mg DAILY [facility] Administration Hydralazine HCl 25 mg 02/05/19 22:00 02/08/19 14:20 Apresoline - PO 25 mg TID [facility] Administration Aztreonam 1 gm/ Dextrose 50 mls @ 100 mls/hr 02/07/19 11:30 02/08/19 10:33 IVPB 100 mls/hr Q8H-IV [facility] Administration Protocol Insulin Aspart 1 vial 02/06/19 22:00 02/07/19 21:12 Novolog Vial Sliding Scale - SQ Not Given HS [facility] Protocol Insulin Aspart 1 vial 02/07/19 07:00 02/08/19 13:37 Novolog Vial Sliding Scale - SQ Not Given TIDAC [facility] Protocol Metoprolol Tartrate 100 mg 02/05/19 22:00 02/08/19 10:34 Lopressor - PO 100 mg BID [facility] Administration AP; Hypoglycemia T2DM HTN UTI Monitor BGM Novolog SS coverage Hold long acting Insulin for now Will try to get BGM log from [facility], called yesterday and left message Nutrition consult HbA1c 5.2 Unclear why pt is on such high dose of Insulin with A1c of 5.2 and normal Creatinine. Will Start Metformin 500mg BID and continue Novolog Coverage She doesn't seem to need long acting Insulin at this point.
--- NOTE | 2019-02-08 17:20 | PN ---
Progress Note, Physician - Current Medication List Current Medications: Active Medications Amlodipine Besylate (Norvasc -) 10 mg PO DAILY [facility] Last Admin: 02/08/19 10:34 Dose: 10 mg Hydralazine HCl (Apresoline -) 25 mg PO TID [facility] Last Admin: 02/08/19 14:20 Dose: 25 mg Aztreonam 1 gm/ Dextrose 50 mls @ 100 mls/hr IVPB Q8H-IV [facility]; Protocol Last Admin: 02/08/19 10:33 Dose: 100 mls/hr Insulin Aspart (Novolog Vial Sliding Scale -) 1 vial SQ HS [facility]; Protocol Last Admin: 02/07/19 21:12 Dose: Not Given Insulin Aspart (Novolog Vial Sliding Scale -) 1 vial SQ TIDAC [facility]; Protocol Last Admin: 02/08/19 16:38 Dose: 2 units Metoprolol Tartrate (Lopressor -) 100 mg PO BID [facility] Last Admin: 02/08/19 10:34 Dose: 100 mg - Objective Vital Signs: Vital Signs Temperature 97.4 F L 02/08/19 15:09 Pulse Rate 68 02/08/19 15:09 Respiratory Rate 18 02/08/19 15:09 Blood Pressure 140/64 02/08/19 15:09 O2 Sat by Pulse Oximetry (%) 97 02/08/19 09:00 Constitutional: Yes: No Distress HENT: Yes: Atraumatic Neck: Yes: Supple Cardiovascular: Yes: Regular Rate and Rhythm Respiratory: Yes: CTA Bilaterally Gastrointestinal: Yes: Normal Bowel Sounds Extremities: Yes: WNL Neurological: Yes: Alert, Oriented Labs: CBC, BMP 02/06/19 07:15 02/08/19 06:00 Problem List - Problems (1) Hypoglycemia Assessment/Plan: monitor Code(s): E16.2 - HYPOGLYCEMIA, UNSPECIFIED (2) UTI (urinary tract infection) Assessment/Plan: iv abx cxs sent Code(s): N39.0 - URINARY TRACT INFECTION, SITE NOT SPECIFIED Qualifiers: Urinary tract infection type: site unspecified Hematuria presence: without hematuria Qualified Code(s): N39.0 - Urinary tract infection, site not specified
[2019-02-09] MEDS ORDERED: AZTREONAM 1 GM VIAL (RESTRICTED TO ID) ONE ×3 (02:34→16:55)
[2019-02-09] MEDS ORDERED: DEXTROSE 5%-WATER - 50 ML IVPB ONE ×3 (02:35→16:56)
[2019-02-09] MEDS: AZTREONAM 1 GM in DEXTROSE 5%-WATER - 50 ML IVPB SCH ×3 (02:51→17:01)
[2019-02-09] MEDS: hydrALAZINE HCL 25 MG TABLET (FP) PO SCH ×3 (06:14→21:04)
[2019-02-09] MEDS: INSULIN SLIDING SCALE (NOVOLOG) 1 VIAL SQ SCH ×4 (06:15→21:06)
[2019-02-09] MEDS: amLODIPine BESYLATE 10 MG TABLET (FP) PO SCH (10:15)
[2019-02-09] MEDS: METOPROLOL TARTRATE 50 MG TABLET (FP) PO SCH ×2 (10:15→21:04)
[2019-02-09 12:11] VITALS: BMI 36.7
--- NOTE | 2019-02-09 12:17 | PN ---
Progress Note, Physician History of Present Illness: patient stable no new issues - Current Medication List Current Medications: Active Medications Amlodipine Besylate (Norvasc -) 10 mg PO DAILY [facility] Last Admin: 02/09/19 10:15 Dose: 10 mg Hydralazine HCl (Apresoline -) 25 mg PO TID [facility] Last Admin: 02/09/19 06:14 Dose: 25 mg Aztreonam 1 gm/ Dextrose 50 mls @ 100 mls/hr IVPB Q8H-IV [facility]; Protocol Last Admin: 02/09/19 10:15 Dose: 100 mls/hr Insulin Aspart (Novolog Vial Sliding Scale -) 1 vial SQ HS [facility]; Protocol Last Admin: 02/08/19 21:52 Dose: Not Given Insulin Aspart (Novolog Vial Sliding Scale -) 1 vial SQ TIDAC [facility]; Protocol Last Admin: 02/09/19 11:21 Dose: 2 units Metoprolol Tartrate (Lopressor -) 100 mg PO BID [facility] Last Admin: 02/09/19 10:15 Dose: 100 mg - Objective Vital Signs: Vital Signs Temperature 98.1 F 02/09/19 06:00 Pulse Rate 57 L 02/09/19 06:00 Respiratory Rate 18 02/09/19 06:00 Blood Pressure 118/53 L 02/09/19 06:00 O2 Sat by Pulse Oximetry (%) 99 02/08/19 21:00 Constitutional: Yes: No Distress, Calm Cardiovascular: Yes: Regular Rate and Rhythm Respiratory: Yes: Regular, CTA Bilaterally Gastrointestinal: Yes: Normal Bowel Sounds, Soft Musculoskeletal: Yes: WNL Extremities: Yes: WNL Neurological: Yes: Alert, Oriented Psychiatric: Yes: Alert, Oriented Labs: CBC, BMP 02/06/19 07:15 02/08/19 06:00 Assessment/Plan Problem List - Problems (1) Hypoglycemia Code(s): E16.2 - HYPOGLYCEMIA, UNSPECIFIED (2) UTI (urinary tract infection) Code(s): N39.0 - URINARY TRACT INFECTION, SITE NOT SPECIFIED Qualifiers: Urinary tract infection type: site unspecified Hematuria presence: without hematuria Qualified Code(s): N39.0 - Urinary tract infection, site not specified ams weakness plan continue abx rest as per the team will deescalate after talking to the primary team
--- NOTE | 2019-02-09 15:45 | PN ---
Progress Note, Physician History of Present Illness: doing well - Current Medication List Current Medications: Active Medications Amlodipine Besylate (Norvasc -) 10 mg PO DAILY [facility] Last Admin: 02/09/19 10:15 Dose: 10 mg Hydralazine HCl (Apresoline -) 25 mg PO TID [facility] Last Admin: 02/09/19 14:25 Dose: 25 mg Aztreonam 1 gm/ Dextrose 50 mls @ 100 mls/hr IVPB Q8H-IV [facility]; Protocol Last Admin: 02/09/19 10:15 Dose: 100 mls/hr Insulin Aspart (Novolog Vial Sliding Scale -) 1 vial SQ HS [facility]; Protocol Last Admin: 02/08/19 21:52 Dose: Not Given Insulin Aspart (Novolog Vial Sliding Scale -) 1 vial SQ TIDAC [facility]; Protocol Last Admin: 02/09/19 11:21 Dose: 2 units Metoprolol Tartrate (Lopressor -) 100 mg PO BID [facility] Last Admin: 02/09/19 10:15 Dose: 100 mg - Objective Vital Signs: Vital Signs Temperature 98.1 F 02/09/19 14:05 Pulse Rate 64 02/09/19 14:05 Respiratory Rate 20 02/09/19 14:05 Blood Pressure 128/57 L 02/09/19 14:05 O2 Sat by Pulse Oximetry (%) 99 02/09/19 09:00 Constitutional: Yes: No Distress HENT: Yes: Atraumatic Neck: Yes: Supple Cardiovascular: Yes: Regular Rate and Rhythm Respiratory: Yes: CTA Bilaterally Gastrointestinal: Yes: Normal Bowel Sounds Extremities: Yes: WNL Edema: No Peripheral Pulses WNL: Yes Neurological: Yes: Alert, Oriented Labs: CBC, BMP 02/06/19 07:15 02/08/19 06:00 Problem List - Problems (1) Hypoglycemia Assessment/Plan: monitor Code(s): E16.2 - HYPOGLYCEMIA, UNSPECIFIED (2) UTI (urinary tract infection) Assessment/Plan: iv abx cxs sent Code(s): N39.0 - URINARY TRACT INFECTION, SITE NOT SPECIFIED Qualifiers: Urinary tract infection type: site unspecified Hematuria presence: without hematuria Qualified Code(s): N39.0 - Urinary tract infection, site not specified
[2019-02-09] MEDS ORDERED: PT OWN MED DRAWER 7, Y5N ONE (20:16)
[2019-02-10] MEDS ORDERED: AZTREONAM 1 GM VIAL (RESTRICTED TO ID) ONE ×3 (00:50→16:37)
[2019-02-10] MEDS ORDERED: DEXTROSE 5%-WATER - 50 ML IVPB ONE ×3 (00:50→16:37)
[2019-02-10] MEDS: AZTREONAM 1 GM in DEXTROSE 5%-WATER - 50 ML IVPB SCH ×3 (01:07→17:17)
[2019-02-10] MEDS ORDERED: PT OWN MED DRAWER 7, Y5N ONE (05:03)
[2019-02-10] MEDS: hydrALAZINE HCL 25 MG TABLET (FP) PO SCH ×3 (05:25→22:18)
[2019-02-10] MEDS: INSULIN SLIDING SCALE (NOVOLOG) 1 VIAL SQ SCH ×4 (06:14→22:18)
[2019-02-10] MEDS: METOPROLOL TARTRATE 50 MG TABLET (FP) PO SCH ×2 (11:00→22:18)
[2019-02-10] MEDS: amLODIPine BESYLATE 10 MG TABLET (FP) PO SCH (11:13)
--- NOTE | 2019-02-10 12:56 | PN ---
Progress Note, Physician History of Present Illness: doing well - Current Medication List Current Medications: Active Medications Amlodipine Besylate (Norvasc -) 10 mg PO DAILY [facility] Last Admin: 02/10/19 11:13 Dose: 10 mg Hydralazine HCl (Apresoline -) 25 mg PO TID [facility] Last Admin: 02/10/19 05:25 Dose: 25 mg Aztreonam 1 gm/ Dextrose 50 mls @ 100 mls/hr IVPB Q8H-IV [facility]; Protocol Last Admin: 02/10/19 11:00 Dose: 100 mls/hr Insulin Aspart (Novolog Vial Sliding Scale -) 1 vial SQ HS [facility]; Protocol Last Admin: 02/09/19 21:06 Dose: Not Given Insulin Aspart (Novolog Vial Sliding Scale -) 1 vial SQ TIDAC [facility]; Protocol Last Admin: 02/10/19 11:28 Dose: Not Given Metoprolol Tartrate (Lopressor -) 100 mg PO BID [facility] Last Admin: 02/10/19 11:00 Dose: 100 mg - Objective Vital Signs: Vital Signs Temperature 97.9 F 02/10/19 05:33 Pulse Rate 61 02/10/19 05:33 Respiratory Rate 20 02/10/19 05:33 Blood Pressure 148/55 L 02/10/19 05:33 O2 Sat by Pulse Oximetry (%) 94 L 02/09/19 21:00 Constitutional: Yes: No Distress HENT: Yes: Atraumatic Neck: Yes: Supple Cardiovascular: Yes: Regular Rate and Rhythm Respiratory: Yes: CTA Bilaterally Gastrointestinal: Yes: Normal Bowel Sounds Extremities: Yes: WNL Edema: No Neurological: Yes: Alert, Oriented Labs: CBC, BMP 02/06/19 07:15 02/08/19 06:00 Problem List - Problems (1) Hypoglycemia Assessment/Plan: monitor Code(s): E16.2 - HYPOGLYCEMIA, UNSPECIFIED (2) UTI (urinary tract infection) Assessment/Plan: iv abx cxs noted Code(s): N39.0 - URINARY TRACT INFECTION, SITE NOT SPECIFIED Qualifiers: Urinary tract infection type: site unspecified Hematuria presence: without hematuria Qualified Code(s): N39.0 - Urinary tract infection, site not specified
[2019-02-10 14:13] LABS: BASO % 0.4 % (0-2.0); EOS % 1.9 % (0-4.5); HEMATOCRIT 27.4 % (32.4-45.2); HEMOGLOBIN 9.2 GM/dL (10.7-15.3); LYMPH % 18.1 % (8-40); MCH 21.9 pg (25.7-33.7); MCHC 33.4 g/dl (32.0-36.0); MEAN CELL VOLUME 65.7 fl (80-96); MEAN PLT VOLUME 8.7 fl (7.5-11.1); NEUT % 71.6 % (42.8-82.8); PLATELET COUNT 164 K/MM3 (134-434); RBC 4.17 M/mm3 (3.60-5.2); RDW 19.2 % (11.6-15.6); WHITE BLOOD COUNT 7.1 K/mm3 (4.0-10.0)
--- NOTE | 2019-02-10 14:40 | PN ---
Progress Note, Physician History of Present Illness: Pt seen, events noted. Pt is alert, fully responsive, afebrile. Denies abd pain/ n/v/d, dysuria, chills. Remains afebrile. - Current Medication List Current Medications: Active Medications Amlodipine Besylate (Norvasc -) 10 mg PO DAILY [facility] Last Admin: 02/10/19 11:13 Dose: 10 mg Hydralazine HCl (Apresoline -) 25 mg PO TID [facility] Last Admin: 02/10/19 05:25 Dose: 25 mg Aztreonam 1 gm/ Dextrose 50 mls @ 100 mls/hr IVPB Q8H-IV [facility]; Protocol Last Admin: 02/10/19 11:00 Dose: 100 mls/hr Insulin Aspart (Novolog Vial Sliding Scale -) 1 vial SQ HS [facility]; Protocol Last Admin: 02/09/19 21:06 Dose: Not Given Insulin Aspart (Novolog Vial Sliding Scale -) 1 vial SQ TIDAC [facility]; Protocol Last Admin: 02/10/19 11:28 Dose: Not Given Metoprolol Tartrate (Lopressor -) 100 mg PO BID [facility] Last Admin: 02/10/19 11:00 Dose: 100 mg - Objective Vital Signs: Vital Signs Temperature 98.4 F 02/10/19 14:24 Pulse Rate 68 02/10/19 14:24 Respiratory Rate 18 02/10/19 14:24 Blood Pressure 135/61 02/10/19 14:24 O2 Sat by Pulse Oximetry (%) 94 L 02/09/19 21:00 Constitutional: Yes: No Distress, Calm Cardiovascular: Yes: Regular Rate and Rhythm Respiratory: Yes: CTA Bilaterally Gastrointestinal: Yes: Normal Bowel Sounds, Soft Genitourinary: Yes: WNL Extremities: Yes: WNL Integumentary: Yes: WNL Neurological: Yes: Alert Labs: CBC, BMP 02/10/19 13:50 Microbiology 02/05/19 17:15 Urine - Urine Clean Catch Urine Culture - Final Escherichia Coli Problem List - Problems (1) Hypoglycemia Code(s): E16.2 - HYPOGLYCEMIA, UNSPECIFIED (2) UTI (urinary tract infection) Code(s): N39.0 - URINARY TRACT INFECTION, SITE NOT SPECIFIED Qualifiers: Urinary tract infection type: site unspecified Hematuria presence: without hematuria Qualified Code(s): N39.0 - Urinary tract infection, site not specified Assessment/Plan AMS hypoglycemia UTI -- Pt with multiple antibiotic allergies -- continue Aztreonam for now -- glucose better controlled clinically improving
[2019-02-10 14:46] LABS: ALBUMIN 3.1 g/dl (3.4-5.0); BILIRUBIN,TOTAL 0.4 mg/dL (0.2-1); CALCIUM 8.1 mg/dL (8.5-10.1); CREATININE 1.7 mg/dL (0.55-1.3); POTASSIUM 3.9 mmol/L (3.5-5.1); TOT PROT 6.4 g/dl (6.4-8.2)
--- NOTE | 2019-02-10 15:02 | PN ---
Progress Note (short form) - Note Progress Note: Denies any complaints FS stable off long acting insulin Vital Signs Period Temp Pulse Resp BP Sys/Lopez Pulse Ox Last 24 Hr 97.4 F-98.4 F 61-68 18-20 135-151/55-65 94 PE: Awake , alert Neck: Supple, No JVD HEENT: PERRL Lungs: CTA CVS: S1S2 Abd: Benign EXt: No edema Neuro: No focal deficit CMP Sodium 135 mmol/L (136-145) L 02/10/19 13:50 Potassium 3.9 mmol/L (3.5-5.1) 02/10/19 13:50 Chloride 104 mmol/L (98-107) 02/10/19 13:50 Carbon Dioxide 25 mmol/L (21-32) 02/10/19 13:50 Anion Gap 6 MMOL/L (8-16) L 02/10/19 13:50 BUN 20 mg/dL (7-18) H 02/10/19 13:50 Creatinine 1.7 mg/dL (0.55-1.3) H 02/10/19 13:50 Creat Clearance w eGFR 39.72 (>60) 02/06/19 07:15 Est GFR (CKD-EPI)AfAm 33.13 02/10/19 13:50 Est GFR (CKD-EPI)NonAf 28.59 02/10/19 13:50 POC Glucometer 134 UNITS (80-120) 02/10/19 11:19 Random Glucose 175 mg/dL (74-106) H 02/10/19 13:50 Hemoglobin A1c % 5.2 % (4.2-6.3) 02/08/19 06:00 Calcium 8.1 mg/dL (8.5-10.1) L 02/10/19 13:50 Total Bilirubin 0.4 mg/dL (0.2-1) 02/10/19 13:50 AST 21 U/L (15-37) 02/10/19 13:50 ALT 17 U/L (13-61) 02/10/19 13:50 Alkaline Phosphatase 69 U/L (45-117) 02/10/19 13:50 Creatine Kinase 114 U/L (26-192) 02/05/19 21:30 Troponin I < 0.02 ng/ml (0.00-0.05) 02/05/19 21:30 Total Protein 6.4 g/dl (6.4-8.2) 02/10/19 13:50 Albumin 3.1 g/dl (3.4-5.0) L 02/10/19 13:50 Current Medications Amlodipine Besylate (Norvasc -) 10 mg PO DAILY [facility] Last Admin: 02/10/19 11:13 Dose: 10 mg Hydralazine HCl (Apresoline -) 25 mg PO TID [facility] Last Admin: 02/10/19 05:25 Dose: 25 mg Aztreonam 1 gm/ Dextrose 50 mls @ 100 mls/hr IVPB Q8H-IV [facility]; Protocol Last Admin: 02/10/19 11:00 Dose: 100 mls/hr Insulin Aspart (Novolog Vial Sliding Scale -) 1 vial SQ HS [facility]; Protocol Last Admin: 02/09/19 21:06 Dose: Not Given Insulin Aspart (Novolog Vial Sliding Scale -) 1 vial SQ TIDAC [facility]; Protocol Last Admin: 02/10/19 11:28 Dose: Not Given Metoprolol Tartrate (Lopressor -) 100 mg PO BID [facility] Last Admin: 02/10/19 11:00 Dose: 100 mg AP; Hypoglycemia T2DM HTN UTI Monitor BGM Labs reviewed. No acidosis off long acting Insulin Novolog SS coverage Hold long acting Insulin for now Will try to get BGM log from [facility], called yesterday again and left message Nutrition consult HbA1c 5.2 Unclear why pt is on such high dose of Insulin with A1c of 5.2 and normal Creatinine. Will Start Metformin 500mg BID and continue Novolog Coverage She doesn't seem to need long acting Insulin at this point.
[2019-02-10 17:32] LABS: ANISOCYTOSIS 1+; MACROCYTOSIS 1+
[2019-02-10 17:33] LABS: TARGET CELLS 2+
[2019-02-10 17:34] LABS: PLATELET ESTIMATE ADEQUATE
[2019-02-11] MEDS ORDERED: DEXTROSE 5%-WATER - 50 ML IVPB ONE ×3 (02:48→17:41)
[2019-02-11] MEDS ORDERED: AZTREONAM 1 GM VIAL (RESTRICTED TO ID) ONE ×3 (02:48→17:41)
[2019-02-11] MEDS: AZTREONAM 1 GM in DEXTROSE 5%-WATER - 50 ML IVPB SCH ×3 (02:58→17:58)
[2019-02-11] MEDS: INSULIN SLIDING SCALE (NOVOLOG) 1 VIAL SQ SCH ×4 (06:19→21:54)
[2019-02-11] MEDS: hydrALAZINE HCL 25 MG TABLET (FP) PO SCH ×3 (06:19→21:55)
[2019-02-11] MEDS: METOPROLOL TARTRATE 50 MG TABLET (FP) PO SCH ×2 (10:51→21:55)
[2019-02-11] MEDS: amLODIPine BESYLATE 10 MG TABLET (FP) PO SCH (10:52)
--- NOTE | 2019-02-11 14:24 | PN ---
Progress Note, Physician History of Present Illness: Pt is alert, fully responsive. Denies any dysuria/suprapubic or flank pain. Has no complaints. Remains afebrile. - Current Medication List Current Medications: Active Medications Amlodipine Besylate (Norvasc -) 10 mg PO DAILY [facility] Last Admin: 02/11/19 10:52 Dose: 10 mg Hydralazine HCl (Apresoline -) 25 mg PO TID [facility] Last Admin: 02/11/19 06:19 Dose: 25 mg Aztreonam 1 gm/ Dextrose 50 mls @ 100 mls/hr IVPB Q8H-IV [facility]; Protocol Last Admin: 02/11/19 10:51 Dose: 100 mls/hr Insulin Aspart (Novolog Vial Sliding Scale -) 1 vial SQ HS [facility]; Protocol Last Admin: 02/10/19 22:18 Dose: Not Given Insulin Aspart (Novolog Vial Sliding Scale -) 1 vial SQ TIDAC [facility]; Protocol Last Admin: 02/11/19 12:14 Dose: 2 units Metoprolol Tartrate (Lopressor -) 100 mg PO BID [facility] Last Admin: 02/11/19 10:51 Dose: 100 mg - Objective Vital Signs: Vital Signs Temperature 98.2 F 02/11/19 13:30 Pulse Rate 71 02/11/19 13:30 Respiratory Rate 18 02/11/19 13:30 Blood Pressure 124/52 L 02/11/19 13:30 O2 Sat by Pulse Oximetry (%) 97 02/10/19 21:00 Constitutional: Yes: No Distress, Calm Neck: Yes: Supple Cardiovascular: Yes: Regular Rate and Rhythm Respiratory: Yes: CTA Bilaterally Gastrointestinal: Yes: Normal Bowel Sounds, Soft Genitourinary: Yes: WNL Integumentary: Yes: WNL Neurological: Yes: Alert Labs: CBC, BMP 02/10/19 13:50 02/10/19 13:50 Problem List - Problems (1) Hypoglycemia Code(s): E16.2 - HYPOGLYCEMIA, UNSPECIFIED (2) UTI (urinary tract infection) Code(s): N39.0 - URINARY TRACT INFECTION, SITE NOT SPECIFIED Qualifiers: Urinary tract infection type: site unspecified Hematuria presence: without hematuria Qualified Code(s): N39.0 - Urinary tract infection, site not specified Assessment/Plan AMS hypoglycemia UTI ADITYA -- Creatinine increased from previous, repeat BMP otherwise pt remains alert, afebrile, without complaints. -- Pt with multiple antibiotic allergies, continue Aztreonam
--- NOTE | 2019-02-11 23:14 | PN ---
Progress Note, Physician - Current Medication List Current Medications: Active Medications Amlodipine Besylate (Norvasc -) 10 mg PO DAILY [facility] Last Admin: 02/11/19 10:52 Dose: 10 mg Hydralazine HCl (Apresoline -) 25 mg PO TID [facility] Last Admin: 02/11/19 21:55 Dose: 25 mg Aztreonam 1 gm/ Dextrose 50 mls @ 100 mls/hr IVPB Q8H-IV [facility]; Protocol Last Admin: 02/11/19 17:58 Dose: 100 mls/hr Insulin Aspart (Novolog Vial Sliding Scale -) 1 vial SQ HS [facility]; Protocol Last Admin: 02/11/19 21:54 Dose: Not Given Insulin Aspart (Novolog Vial Sliding Scale -) 1 vial SQ TIDAC [facility]; Protocol Last Admin: 02/11/19 17:32 Dose: Not Given Metoprolol Tartrate (Lopressor -) 100 mg PO BID [facility] Last Admin: 02/11/19 21:55 Dose: 100 mg - Objective Vital Signs: Vital Signs Temperature 98 F 02/11/19 18:00 Pulse Rate 65 02/11/19 18:00 Respiratory Rate 18 02/11/19 18:00 Blood Pressure 140/73 02/11/19 18:00 O2 Sat by Pulse Oximetry (%) 97 02/10/19 21:00 Labs: CBC, BMP 02/10/19 13:50 02/10/19 13:50 Problem List - Problems (1) Hypoglycemia Code(s): E16.2 - HYPOGLYCEMIA, UNSPECIFIED (2) UTI (urinary tract infection) Code(s): N39.0 - URINARY TRACT INFECTION, SITE NOT SPECIFIED Qualifiers: Urinary tract infection type: site unspecified Hematuria presence: without hematuria Qualified Code(s): N39.0 - Urinary tract infection, site not specified
[2019-02-12] MEDS ORDERED: AZTREONAM 1 GM VIAL (RESTRICTED TO ID) ONE ×2 (01:07→08:56)
[2019-02-12] MEDS ORDERED: DEXTROSE 5%-WATER - 50 ML IVPB ONE ×2 (01:08→08:56)
[2019-02-12] MEDS: AZTREONAM 1 GM in DEXTROSE 5%-WATER - 50 ML IVPB SCH ×2 (01:27→09:38)
[2019-02-12] MEDS: hydrALAZINE HCL 25 MG TABLET (FP) PO SCH ×2 (06:29→13:20)
[2019-02-12] MEDS: INSULIN SLIDING SCALE (NOVOLOG) 1 VIAL SQ SCH ×3 (06:29→16:10)
[2019-02-12] MEDS: amLODIPine BESYLATE 10 MG TABLET (FP) PO SCH (09:39)
[2019-02-12] MEDS: METOPROLOL TARTRATE 50 MG TABLET (FP) PO SCH (09:39)
--- NOTE | 2019-02-12 10:27 | PN ---
Progress Note, Physician History of Present Illness: stable no new issues - Current Medication List Current Medications: Active Medications Amlodipine Besylate (Norvasc -) 10 mg PO DAILY [facility] Last Admin: 02/12/19 09:39 Dose: 10 mg Hydralazine HCl (Apresoline -) 25 mg PO TID [facility] Last Admin: 02/12/19 06:29 Dose: 25 mg Aztreonam 1 gm/ Dextrose 50 mls @ 100 mls/hr IVPB Q8H-IV [facility]; Protocol Last Admin: 02/12/19 09:38 Dose: 100 mls/hr Insulin Aspart (Novolog Vial Sliding Scale -) 1 vial SQ HS [facility]; Protocol Last Admin: 02/11/19 21:54 Dose: Not Given Insulin Aspart (Novolog Vial Sliding Scale -) 1 vial SQ TIDAC [facility]; Protocol Last Admin: 02/12/19 06:29 Dose: 2 units Metoprolol Tartrate (Lopressor -) 100 mg PO BID [facility] Last Admin: 02/12/19 09:39 Dose: 100 mg - Objective Vital Signs: Vital Signs Temperature 98.1 F 02/12/19 09:44 Pulse Rate 62 02/12/19 09:44 Respiratory Rate 20 02/12/19 09:44 Blood Pressure 147/60 02/12/19 09:44 O2 Sat by Pulse Oximetry (%) 94 L 02/11/19 21:00 Constitutional: Yes: No Distress, Calm Cardiovascular: Yes: S1, S2 Respiratory: Yes: Regular, CTA Bilaterally Gastrointestinal: Yes: Normal Bowel Sounds, Soft Musculoskeletal: Yes: WNL Extremities: Yes: WNL Neurological: Yes: Alert, Oriented Psychiatric: Yes: Alert, Oriented Labs: CBC, BMP 02/10/19 13:50 02/10/19 13:50 Assessment/Plan Problem List - Problems (1) Hypoglycemia Code(s): E16.2 - HYPOGLYCEMIA, UNSPECIFIED (2) UTI (urinary tract infection) Code(s): N39.0 - URINARY TRACT INFECTION, SITE NOT SPECIFIED Qualifiers: Urinary tract infection type: site unspecified Hematuria presence: without hematuria Qualified Code(s): N39.0 - Urinary tract infection, site not specified ams weakness plan continue abx rest as per the team will stop abx rest as per the team
[2019-02-12 14:04] VITALS: BP 146/69; PULSE 70; TEMP 97.7
--- NOTE | 2019-02-12 15:35 | DS ---
Physical Examination Vital Signs: Vital Signs Temperature 97.7 F 02/12/19 14:01 Pulse Rate 70 02/12/19 14:01 Respiratory Rate 20 02/12/19 14:01 Blood Pressure 146/69 02/12/19 14:01 O2 Sat by Pulse Oximetry (%) 95 02/12/19 09:00 Constitutional: Yes: No Distress HENT: Yes: Atraumatic Neck: Yes: Supple Cardiovascular: Yes: Regular Rate and Rhythm Respiratory: Yes: CTA Bilaterally Gastrointestinal: Yes: Normal Bowel Sounds Extremities: Yes: WNL Edema: No Peripheral Pulses WNL: Yes Neurological: Yes: Alert, Oriented Labs: CBC, BMP 02/10/19 13:50 02/10/19 13:50 Discharge Summary Reason For Visit: URINARY TRACT INFECTION, HYPOGLYCEMIA Current Active Problems Hypoglycemia (Acute) UTI (urinary tract infection) (Acute) Condition: Stable - Instructions Disposition: [facility] - Home Medications Comprehensive Discharge Medication List: Ambulatory Orders Amlodipine Besylate 10 mg PO DAILY 02/05/19 Ascorbate Calcium [Vitamin C] 500 mg PO DAILY 02/05/19 Cyanocobalamin (Vitamin B-12) [Vitamin B-12] 1,500 mcg PO DAILY 02/05/19 Insulin Glargine,Hum.rec.anlog [Lantus] 45 unit SQ AM 02/05/19 Insulin Lispro [Humalog] 3 unit SQ TID 02/05/19 Latanoprost 1 drop OP HS 02/05/19 Magnesium 400 mg PO TID 02/05/19 Metoprolol Tartrate 100 mg PO BID 02/05/19 Ranitidine HCl 150 mg PO BID 02/05/19 hydrALAZINE HCL [Apresoline -] 25 mg PO TID 02/05/19 completed abx per id sd home
== END 2019-02-12 16:30 | disposition home or self-care (01) | DRG 638 ==
LOC: JER 14:18 → JERBED 18:57 → OBSVTOIN 18:57 → J7W 20:10
PROVIDERS: ADMIT Internal Medicine; ATTEND Internal Medicine
DX: E11.649 Type 2 diabetes mellitus with hypoglycemia without coma (principal); N39.0 Urinary tract infection, site not specified; C79.70 Secondary malignant neoplasm of unspecified adrenal gland; C52 Malignant neoplasm of vagina; N17.9 Acute kidney failure, unspecified; I10 Essential (primary) hypertension; E78.5 Hyperlipidemia, unspecified; G40.909 Epilepsy, unspecified, not intractable, without status epilepticus; Z79.4 Long term (current) use of insulin; Z88.0 Allergy status to penicillin
CPT/HCPCS: 36415; 71045-TC-FY; 80053; 81003; 82550; 82962; 83036; 84484; 85025; 87086; 87186; 93005; 93010; 97116-GP; 97161-GP; 99282-25